=== PATIENT | male | born 1930 | race Caucasian/White ===

== ENCOUNTER 2020-12-14 12:29 | Inpatient (IN) | payer OTHER ==
[~2020-12-14] VITALS: Ht 182.9 cm; Wt 86.3 kg
[2020-12-14 12:36] VITALS: BP 107/68
[2020-12-14] MEDS ORDERED: ASA81BEC PO (12:39)
[2020-12-14] MEDS ORDERED: ALLOPURINOL 10100 M3 PO (12:39)
[2020-12-14] MEDS ORDERED: NORVASC 2.5 MG2.5 M1 PO (12:39)
[2020-12-14] MEDS ORDERED: VITAMIN B-121000 MC2 SUBLING (12:40)
[2020-12-14] MEDS ORDERED: LIPITOR40 MG PO (12:40)
[2020-12-14] MEDS ORDERED: CHLORTHALIDONE25 MG PO (12:40)
[2020-12-14] MEDS ORDERED: THERACRAN650 MG PO (12:40)
[2020-12-14] MEDS ORDERED: PROSCAR 5MG TABL5 MG PO (12:40)
[2020-12-14] MEDS ORDERED: CARVEDILOL12.5 MG PO (12:40)
[2020-12-14] MEDS ORDERED: FOLIC ACID1 MG PO (12:41)
[2020-12-14] MEDS ORDERED: GLUCOSAMINE H1500 MG PO (12:41)
[2020-12-14] MEDS ORDERED: NEURONTIN100 MG PO (12:41)
[2020-12-14] MEDS ORDERED: [UNRECOGNIZED DRUG - OTHER] (12:41)
[2020-12-14] MEDS ORDERED: GLYCOLAX119 GM PO (12:42)
[2020-12-14] MEDS ORDERED: OMEGA 3 FISH O1 EACH PO (12:42)
[2020-12-14] MEDS ORDERED: PYRIDOXINE HCL500 MG PO (12:42)
[2020-12-14] MEDS ORDERED: REMERON 30 MG T30 M1 PO (12:42)
[2020-12-14] MEDS ORDERED: ALTACE10 MG PO (12:43)
[2020-12-14] MEDS ORDERED: FLOMAX0.4 MG PO (12:43)
[2020-12-14 13:01] LABS: ABSOLUTE LYMPHOCYTES 0.9 thou/uL (0.8-5.3); ABSOLUTE MONOCYTES 0.4 thou/uL (0.0-1.2); ABSOLUTE NEUTROPHILS 5.7 thou/uL (1.6-8.1); BASOPHILS 0.2 %; EOSINOPHILS 0.1 %; HEMATOCRIT 31.5 % (42.0-52.0); HEMOGLOBIN 10.9 gm/dL (14.0-18.0); LYMPHOCYTES 13.2 %; MCHC 34.5 g/dL (28.0-37.0); MCV 95.7 fL (80.0-100.0); MONOCYTES 5.3 %; MPV 8.5 fl. (7.2-11.1); NUCLEATED RBCS 0 /100WBC; PLATELET COUNT* 113 thou/uL (150-400); POLYS 81.2 %; RDW-CV 15.7 % (10.5-14.5)
[2020-12-14 13:36] LABS: CALCIUM 7.9 mg/dL (8.5-10.1); CREATININE 1.9 mg/dL (0.6-1.3); POTASSIUM 3.8 mmol/L (3.5-5.1)
[2020-12-14 13:47] LABS: ALBUMIN 2.8 g/dL (3.4-5.0); TOTAL BILIRUBIN 0.7 mg/dL (<0.1-1.0); TOTAL PROTEIN 7.1 g/dL (6.4-8.2)
--- NOTE | 2020-12-14 14:48 | NUR ---
CONTACT NUMBER (GEB) jeff. [phone]
--- NOTE | 2020-12-14 17:00 | NUR ---
PATIENT ATE DINNER WITHOUT COMPLICATIONS. SPOKE TO GISSELLE, SON AND UPDATED ABOUT FATHER
[2020-12-14 18:00] VITALS: BP 105/54
[2020-12-14 21:52] VITALS: BP 133/74
[2020-12-14 22:26] VITALS: BP 132/56
[2020-12-14 23:00] VITALS: BP 134/50
[2020-12-14 23:54] LABS: URINE BILIRUBIN NEGATIVE (Negative); URINE BLOOD TRACE (Negative); URINE CLARITY CLEAR; URINE COLOR YELLOW; URINE GLUCOSE-RANDOM NEGATIVE (Negative); URINE KETONES NEGATIVE (Negative); URINE LEUKOCYTES-REFLEX NEGATIVE (Negative); URINE NITRITE-REFLEX NEGATIVE (Negative); URINE PROTEIN 2+ (Negative); URINE SPECIFIC GRAVITY 1.015 (1.005-1.030); URINE UROBILINOGEN 0.2 E.U./dl (0.2-1.0)
[2020-12-15 00:19] LABS: CASTS None Seen /LPF (None Seen); SQUAMOUS 0-3 Few /LPF (0-3)
[2020-12-15 00:20] LABS: AMORPHOUS URATES Moderate /LPF (None Seen); URINE RBC 0-2 Rare /HPF (0-2); URINE WBC-REFLEX 0-5 Rare /HPF (0-5)
--- NOTE | 2020-12-15 04:05 | NUR ---
RECEIVED REPORT FROM JOIE SERNA. PT TRANSFERRED TO RM 114. PT A&OX4. FORGETFUL AT TIMES. VSS. ADMISSION HISTORY & PHYSICAL ASSESSMENT COMPLETED AND CHARTED. PT ON RA. PT TRACING SR/SB/PAC ON TELE. PT UP WITH 2 ASSIST. PT REFUSED TO BE TURN EVEN AFTER EDUCATION. URINE SPECIMEN SENT TO LAB. FALL PRECAUTIONS IN PLACE. CALL LIGHT WITHIN REACH.
[2020-12-15 05:47] VITALS: BP 111/55
[2020-12-15 08:09] VITALS: BP 127/58
--- NOTE | 2020-12-15 09:57 | EKG ---
[place] [address] ELECTROCARDIOGRAM REPORT Name: MARY JANE LANCE Room: [address] ADM IN .R.#: [id number] Admission: 12/14/20 Attend Phys: Artemio Shannon Discharge: Date of : [birth year] Date of Service: 12/14/20 1241 Report #: [id number] THIS REPORT FOR: //name// [facility] ED Test Date: 2020-12-14 Test Time: 12:41:24 Pat Name: MARY JANE LANCE Department: Room: [facility] Gender: M Contact Representative: RICHARD : 1930 Requested By: Brianna Barnes Order Number: [id number] MD: Jeremias Martinez Measurements Intervals Picher Rate: 80 P: -8 GA: 162 QRS: -15 QRSD: 126 T: -17 QT: 457 QTc: 528 Interpretive Statements Sinus rhythm poor r wave progression Multiple premature complexes, supraven Nonspecific intraventricular conduction delay Borderline repolarization abnormality Baseline wander in lead(s) V6 No previous ECG available for comparison Electronically Signed On 12-15-2020 9:57:13 CDT by Jeremias Martinez [email or web address] <ELECTRONICALLY SIGNED> By: Jeremias Martinez MD, FAC 12/15/20 0957 1241 1241 Jeremias Martinez MD, FAC /EPI
--- NOTE | 2020-12-15 10:20 | NUR ---
cm s/w pt's son rex, who indicated pt lives home with his and uses [facility] for in home c/g. pt used [facility] for hh in the past, but currently no hh. pt need "three ppl to get him into his transport chair" therefore, rex brought pt into hospital. pt was in snf about "8 to 10 y/a after hip sx." rex doesnt recall which facility pt was in. rex considering [facility] vs [facility], as he is curious and concerned about pt inability to ambulate. cm to cont to follow.
[2020-12-15 12:37] VITALS: BP 89/46
[2020-12-15 14:42] VITALS: BP 120/57
[2020-12-15 15:54] VITALS: BP 109/40
[2020-12-15 20:00] VITALS: BP 144/48
[2020-12-16 00:28] VITALS: BP 126/62
--- NOTE | 2020-12-16 04:10 | NUR ---
ASSUMED CARE OF PT AFTER REPORT AT 1930. PT A&OX4. VSS. PHYSICAL ASSESSMENT COMPLETED AND CHARTED. PT ON RA. PT TRACING SR/PAC ON TELE. PT DENIES ANY PAIN. FALL PRECAUTIONS IN PLACE. CALL LIGHT WITHIN REACH.
[2020-12-16 05:35] LABS: HEMATOCRIT 26.8 % (42.0-52.0); HEMOGLOBIN 9.1 gm/dL (14.0-18.0); MCH 32.6 pg (26.0-34.0); MCHC 34.1 g/dL (28.0-37.0); MCV 95.8 fL (80.0-100.0); MPV 8.8 fl. (7.2-11.1); RBC 2.8 mil/uL (4.50-6.00); RDW-CV 15.2 % (10.5-14.5); WBC 5.1 thou/uL (4.0-11.0)
[2020-12-16 05:47] LABS: CALCIUM 7.4 mg/dL (8.5-10.1); CREATININE 1.4 mg/dL (0.6-1.3); POTASSIUM 3.5 mmol/L (3.5-5.1)
[2020-12-16 05:50] VITALS: BP 126/46
[2020-12-16 07:58] VITALS: BP 168/87
[2020-12-16 12:00] VITALS: BP 119/41
[2020-12-16 15:28] VITALS: BP 132/74
--- NOTE | 2020-12-16 16:14 | NUR ---
cm received message from [employer], to call pt's son, rex. cm attepted contact, no answer.
--- NOTE | 2020-12-16 18:55 | NUR ---
Had 20 minute conversation with pt's son, Shaw, this afternoon. Shaw is requesting that all physicians and therapists/specialists call him via pt's cell phone and put on speaker so he can hear what is being discussed and recommendations so he may assist pt with decision-making. He expressed appreciation for all we (the hospital staff) are doing for his father; but he states that his father has been forgetful and has not been accurately relaying information. VSS. Pt up to chair this evening for supper, and up to chair with PT this afternoon. Will continue to monitor.
[2020-12-16 20:00] VITALS: BP 147/62
[2020-12-17] VITALS (7 sets, daily range): BP systolic 114–134; BP diastolic 50–64
--- NOTE | 2020-12-17 00:12 | NUR ---
ASSUMED CARE OF PT AFTER REPORT AT 1930. PT A&OX4. FORGETFUL AT TIMES. VSS. PHYSICAL ASSESSMENT COMPLETED AND CHARTED. PT ON RA. PT TRACING SR ON TELE. PT DENIES ANY PAIN. FALL PRECAUTIONS IN PLACE. CALL LIGHT WITHIN REACH.
[2020-12-17 05:36] LABS: CALCIUM 7.5 mg/dL (8.5-10.1); CREATININE 1.3 mg/dL (0.6-1.3); POTASSIUM 3.6 mmol/L (3.5-5.1)
[2020-12-17 05:40] LABS: HEMATOCRIT 25.8 % (42.0-52.0); HEMOGLOBIN 9.1 gm/dL (14.0-18.0); MCH 33.3 pg (26.0-34.0); MCHC 35.2 g/dL (28.0-37.0); MCV 94.8 fL (80.0-100.0); MPV 8.7 fl. (7.2-11.1); RBC 2.72 mil/uL (4.50-6.00); RDW-CV 15.7 % (10.5-14.5); WBC 5.2 thou/uL (4.0-11.0)
--- NOTE | 2020-12-17 16:52 | NUR ---
RECEIVED REPORT AROUND 0715. ASSUMED CARE. VS AND ASSESSSMENT CHARTED. IV INTACT THIS AM. HEART MONITOR ATTACHED AT SR WITH PAC'S. MEDS GIVEN PER JUL. HOURLY ROUNDING PERFORMED. DISCHARGE ORDERS RECEIVED. HOME HEALTH SET UP THROUGH CASE MANAGEMENT. IV TAKEN OUT. HEART MONITOR OFF. PT PUT IN OWN WHEEL CHAIR FROM HOME. WENT OVER DISCHARGE PAPERWORK WITH SON. GAVE SON A LIST OF NURSING FACILITIES. COMMUNICATED UNDERSTANDING. PT LEFT UNIT VIA OWN WHEEL CHAIR WITH NURSING STAFF AND ALL BELONGINGS AT 1635.
== END 2020-12-17 16:35 | disposition home health service (06) | DRG 177 ==
LOC: M.ERS 12:29 → M.ORTHSURG 14:59 → M.TBA-ER 14:59 → M.ORTHSURG 22:47
PROVIDERS: Emergency Medicine; Family Medicine; Physician Assistant; ADMIT Internal Medicine; ATTEND Internal Medicine
DX: U07.1 COVID-19 (principal); N17.0 Acute kidney failure with tubular necrosis; E44.1 Mild protein-calorie malnutrition; I10 Essential (primary) hypertension; D64.9 Anemia, unspecified; E83.42 Hypomagnesemia; I25.10 Atherosclerotic heart disease of native coronary artery without angina pectoris; N40.0 Benign prostatic hyperplasia without lower urinary tract symptoms; E78.5 Hyperlipidemia, unspecified; K21.9 Gastro-esophageal reflux disease without esophagitis; Z87.440 Personal history of urinary (tract) infections; Z79.899 Other long term (current) drug therapy; Z79.82 Long term (current) use of aspirin; Z68.25 Body mass index [BMI] 25.0-25.9, adult